=== PATIENT | male | born 1985 | race Caucasian/White ===

== ENCOUNTER → 2018-12-17 17:39 | Outpatient (CLI) | payer OTHER, SELFPAY ==
--- NOTE | 2018-12-17 | DI.MRI.S_ITS ---
PROCEDURE: MR ANKLE LT WO CON INDICATIONS: PAIN IN LEFT ANKLE AND JOINTS OF LEFT FOOT TECHNIQUE: Noncontrast sagittal T1 spin echo and T2 fast spin echo with fat saturation, axial proton density fast spin echo and T2 fast spin echo with fat saturation, coronal T1 spin echo and T2 fast spin echo with fat saturation through the ankle/hindfoot. COMPARISON: [facility] Outside Film, MR, MR ANKLE LEFT WITHOUT CONTRAST, 06/16/2018, 13:19. FINDINGS: Image quality: Diagnostic. Bones and joints: No acute fracture, dislocation, or suspicious osseous lesion is appreciated involving the osseous structures of the foot or hindfoot. There may be mild degenerative changes involving the tarsal bones. There is slight irregularity involving the anterior process of the calcaneus, probably representing sequela from previous injury. Ankle mortise is well-maintained. There are no osteochondral defects involving the tibial plafond toward the talar dome. No joint effusions are appreciated. Medial structures: The deltoid and spring ligaments appear to be intact. The flexor hallucis longus, flexor digitorum longus, and tibialis posterior tendons are intact and within normal limits. The posterior tibial nerve through the tarsal tunnel is unremarkable. Lateral structures: The anterior and posterior distal tibiofibular ligaments are intact. The anterior and posterior talofibular ligaments are also intact. The calcaneofibular ligament is intact. There is flattening of the peroneus brevis tendon along the posterior margin of the lateral malleolus with a questionable short segment longitudinal split tear. There is increased signal and thickening involving the tibialis posterior tendon. No significant edema is identified within the sinus tarsi. Anterior structures: The tibialis anterior, extensor hallucis longus, and extensor digitorum longus tendons appear intact. Posterior and plantar structures: Achilles tendon is intact. However, there is mild thickening and increased signal identified involving the Achilles tendon. Minimal edema involving the distal margin of the soleus muscle is present. Medial and lateral bands of the plantar fascia are of normal thickness. IMPRESSION: 1. Mild distal Achilles tendinopathy with possible mild distal soleus muscle strain. 2. Moderate peroneus longus tendinopathy. 2. Mild peroneus brevis tendinopathy with a possible short segment longitudinal split tear near the tip of the lateral malleolus. 4. Probable old subtle injury involving the anterior process of the calcaneus. 5. No acute ligamentous abnormalities of the ankle. Dictated by: Mauricio Rodriguez M.D. on 12/18/2018 at 10:12 Approved by: Mauricio Rodriguez M.D. on 12/18/2018 at 10:17
== END ==
PROVIDERS: Visit Provider Orthopaedic Surgery Foot and Ankle Surgery
DX: M25.572 Pain in left ankle and joints of left foot (principal); M67.874 Other specified disorders of tendon, left ankle and foot
CPT/HCPCS: 73721